=== PATIENT | female | born 1965 | race Caucasian/White ===

== ENCOUNTER 2024-08-14 08:44 | Outpatient (CLI) | payer BC, MEDICAID, SELFPAY ==
--- NOTE | 2024-08-14 | ECG_ITS ---
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 Interpretive Statements Lung unchanged pre/post procedure; Intraprocedure shortess of breath; Symptoms resoled by discharge PROCEDURE: At the baseline, the EKG revealed possibly normal sinus rhythm. Because of the heavy artifact, further manipulation is not possible. The baseline heart was 91 bpm with a blood pressue of 167/99 mm of Hg Lexiscan was infused over a period of 20 seconds. A total of 0.4 milligrams of Lexiscan was infused. The stress phase was continued for a total of 5 minutes. Heart rate at the end of the stress phase was 91 bpm with a blood pressure 149/110 mm of Hg. The EKG at the peak infusion revealed no significant changes. Sestamibi was injected 20 seconds after the Lexiscan infusion. Heart rate at the end of the recovery phase was 100 bpm with a blood pressure of 163/99 mm of Hg. CONCLUSION: 1. Possibly no significant EKG changes with the LexiScan infusion 2. No LexiScan induced chest pain or cardiac arrhythmia 3. Normal blood pressure and heart rate response 4. Sestamibi/sestamibi perfusion scan pending; see separate report. Electronically Signed On 08-18-2024 21:59:09 CDT by Anita Richmond M.D. [email or web address]
[2024-08-14 09:12] VITALS: BMI 35.0
--- NOTE | 2024-08-14 09:16 | NMCV_ITS ---
NM jamaal perf SPECT r/s* [id number] Margret Lagosh Age: 59 Gender: F : 1965 Exam Date: 08/14/2024 09:48 Ordering Phys: Itzel Cordero Technologist: COLT Peña Exam Location: [facility] Indications: cp STRESS TEST Please see separate stress test report in [facility] for full findings IMAGE PROTOCOL Rest/Stress 1 Lexiscan Day Radiopharmaceutical Dose (mCi) Administration Site Administered by Rest: Tc-99m 10.4 IV COLT Young Sestamibi Stress:Tc-99m 32.8 IV COLT Peña Sestamilinh Rest: 14-Aug-2024 60 Discovery 630 Stress: 14-Aug-2024 30 Discovery 630 0.4mg Lexiscan. Images obtained in supine and prone position. SPECT RESULTS Technical Quality: Good Raw Data Analysis: Normal Image Corrections: No attenuation or motion correction applied Summed Stress Score: 0 Summed Rest Score: 0 Summed Difference Score: 0 PERFUSION FINDINGS Fairly uniform myocardial tracer uptake with no significant Perfusion normalities FUNCTIONAL RESULTS (calculated via Gated SPECT) Stress Image LV EF (%): 93 Stress EDV (mL):57 TID: 0.7 Stress ESV (mL):4 FUNCTIONAL FINDINGS: Segmental wall motion analysis revealing no gross wall motion abnormalities IMPRESSIONS 1. Myocardial perfusion imaging revealing uniform myocardial tracer uptake with no significant perfusion abnormalities 2. Normal LV ejection fraction of 83%. 3. LV wall motion analysis revealing no gross wall motion abnormalities. 4. Normal LV volume Low probability for coronary ischemia, based on the above findings Dr Anita Richmond MD FACC (Electronically Signed) Final Date: 14 August 2024 13:23 S
[2024-08-14] MEDS: hyDRALAzine 20 mg/mL INJ 1 mL 10 MG IVP (10:55)
[2024-08-14 11:02] VITALS: BP 163/99; PULSE 99
== END 2024-08-14 08:45 | disposition home or self-care (01) ==
LOC: CDL 08:51
PROVIDERS: PCP Family Medicine; Visit Provider Registered Nurse
DX: I10 Essential (primary) hypertension (principal)
CPT/HCPCS: 36415; 78452; 93017; 96374; 96375; A9500; J0360; J2785

== ENCOUNTER 2024-10-02 06:38 | Oncology outpatient (recurring) (ONCR) | payer BC, MEDICAID, SELFPAY ==
--- NOTE | 2024-10-02 07:00 | USCV_ITS ---
Tomeka Lagos Age: 59 Gender: F : 1965 Exam Date: 10/02/2024 07:06 Ordering Phys: Verito Dobbs MD Technologist: Exam Location: [facility] [place] Indication: sob dizzy BP: 150 / 80 HR: 68 Rhythm: Sinus Technical Quality: Adequate MEASUREMENTS (Male / Female) Normal Values 2D ECHO LV Diastolic Diameter PLAX 4.3 cm 4.2 - 5.9 / 3.9 - 5.3 cm IVS Diastolic Thickness 1.3 cm 0.6 - 1.0 / 0.6 - 0.9 cm IVS Systolic Thickness 1.6 cm LVPW Diastolic Thickness 1.2 cm 0.6 - 1.0 / 0.6 - 0.9 cm LVPW Systolic Thickness 1.7 cm LVOT Diameter 2.0 cm LV Ejection Fraction 2D Teich 63.9 % LV Ejection Fraction MOD 4C 71.6 % LV Ejection Fraction MOD 2C 66.5 % LV Ejection Fraction 2C AL 65.8 % LA Diameter 3.2 cm RA Systolic Volume 4C AL 45.3 ml RA Systolic Volume 4C MOD 41.9 ml Aorta at Sinotubular Diameter 3.0 cm IVC Diameter 1.2 cm M-MODE LA Ao Ratio MM 1.4 AV Cusp Separation MM 2.7 cm DOPPLER AV Peak Velocity 125.0 cm/s LVOT Peak Velocity 66.0 cm/s AV Area Cont Eq vti 1.8 cm squared AV Area Cont Eq pk 1.7 cm squared MV Peak Velocity 91.0 cm/s TV Peak Velocity 167.5 cm/s TR Peak Velocity 208.0 cm/s TR Peak Gradient 17.3 mmHg TV Peak E Velocity 88.0 cm/s PV Peak Velocity 111.0 cm/s FINDINGS Left Ventricle Normal left ventricular size and systolic function with no regional wall motion abnormalities. Normal systolic function, EF 60-65%. Right Ventricle Normal right ventricular size and systolic function. Right Atrium Normal right atrial size. Left Atrium Normal left atrial size. Mitral Valve Structurally normal mitral valve. Trace mitral valve regurgitation. Aortic Valve Structurally normal aortic valve. No aortic valve stenosis. Tricuspid Valve Insufficient TR jet to calculate RVSP Pulmonic Valve Not well visualized Pericardium Normal Aorta Normal in size IVC Appears to be normal CONCLUSIONS LV systolic function is normal with EF of 60-65% Trace mitral regurgitation No comparison studies are available Iain Salazar MD (Electronically Signed) Final Date: 04 October 2024 11:58 S
== END 2024-10-06 23:59 | disposition home or self-care (01) ==
PROVIDERS: PCP Family Medicine; Visit Provider Internal Medicine Medical Oncology
DX: C50.912 Malignant neoplasm of unspecified site of left female breast (principal)
CPT/HCPCS: 93306

== ENCOUNTER 2024-11-05 11:17 | Day surgery (SDC) | payer BC, MEDICAID, SELFPAY ==
[2024-11-05] VITALS (7 sets, daily range): BP systolic 88–139; BP diastolic 62–97; PULSE 69–77; RESP 16–19; TEMP 36.1–36.3; O2SAT 92–100; BMI 36.2
--- NOTE | 2024-11-05 11:33 | SC_ITS ---
WS: [id number] C-arm FL for CVA [id number] REASON FOR EXAM: Port-A-Cath placement FINDINGS: Left chest port placement with left IJ infusion catheter with the tip at the junction of the SVC and innominate vein. SC/C-arm FL for CVA [id number] IMPRESSION: Left chest port and infusion catheter placement as above.
--- NOTE | 2024-11-05 11:53 | ANES.PREANE2 ---
Pre-Anesthetic Assessment Height/Weight: Height 5 ft 2 in Weight 198 lb O2 Del Method Room Air 11/05/24 11:43 Preop Diagnosis: Breast cancer Operation Date: 11/05/24 13:15 Proposed Procedures p Port a Cath Insertion 69511 C50.912(Not Applicable) - Max Hanks MD Was Beta Xochitl taken within 24 hours: N/A Was Clonidine taken within 24 hours: N/A Last intake: Intake Last Liquid Date 11/04/24 Last Liquid Time 21:00 Last Solid Date 11/04/24 Last Solid Time 21:00 Social No alcohol and No tobacco Exam alert, oriented x 3 and regular rate & rhythm Airway Submandibular: within normal limits Cervical ROM: within normal limits Mallampati: Class II Dentition: full Anesthetic Plan ASA status: 3 Anesthesia: General Other: No prior issues with anesthesia NPO since yesterday evening History of seizures on Keppra. Last taken yesterday. Last seizure 3 years ago Hypertension on metoprolol and spironolactone Patient recently diagnosed with breast cancer, invasive ductal carcinoma Echo performed in September showing preserved EF Plan for [facility] Medications/Allergies Home Medications ?Medication ?Instructions ?Recorded ?Confirmed ?Last Taken ?Type amitriptyline 25 mg tablet 25 mg PO DAILY 09/02/24 11/04/24 11/04/24 History atorvastatin 40 mg tablet 40 mg PO DAILY 09/02/24 11/05/24 11/05/24 History levetiracetam 500 mg tablet 500 mg PO BID 09/02/24 11/04/24 11/04/24 History (Keppra) metoprolol succinate 100 mg 100 mg PO DAILY 09/02/24 11/05/24 11/05/24 History tablet,extended release 24 hr spironolactone 25 mg tablet 25 mg PO DAILY 09/02/24 11/04/24 11/04/24 History 25 ondansetron HCl 4 mg tablet 4 mg PO Q6H PRN nausea and 10/28/24 11/04/24 Unknown Rx vomiting #30 tabs prochlorperazine maleate 10 mg 10 mg PO Q4H PRN mild nausea #30 10/28/24 11/04/24 Unknown Rx tablet (Compazine) tabs aspirin 81 mg tablet 81 mg PO DAILY 11/01/24 11/04/24 11/04/24 History Allergies Allergy/AdvReac Type Severity Reaction Status Date / Time Penicillins Allergy ALGY-Hives Verified 11/04/24 14:59 [facility] Anesthesia Social History Smoking and tobacco/nicotine status: never used tobacco/nicotine Data Anesthesia Cardiac Studies: Echocardiogram 10/02/24 Sestamibi Stress Test (Cardiology) 08/14/24
--- NOTE | 2024-11-05 11:59 | W.PM.OPSUD ---
Surgery/Procedure H&P Update DATE OF PROCEDURE: November 05, 2024 DATE H&P PERFORMED: 11/01/24 H&P UPDATE INFORMATION: I have reviewed H&P completed within last 30 days, I have examined patient prior to procedure, No changes to prior documentation and Risks and benefits of the procedure reviewed PLANNED PROCEDURE: Operation Date: 11/05/24 13:15 Proposed Procedures p Port a Cath Insertion 99133 C50.912(Not Applicable) - Max Hanks MD
[2024-11-05] MEDS: heparin, porcine 1,000 unit/mL INJ 10 mL 6000 UNIT INTRACATH (12:58)
[2024-11-05] MEDS: BUPivacaine 0.25% INJ 10 mL INJECTION (13:35)
[2024-11-05] MEDS: lidocaine-epi 1% 20 mL INJ 10 ML INJECTION (13:35)
--- NOTE | 2024-11-05 13:39 | P.OP_ITS ---
Operative Report Date of procedure: November 05, 2024 Pre-op diagnosis: Breast cancer Post-op diagnosis: same Post-op findings: Tip of catheter of catheter at atriocaval junction confirmed with intraoperative fluoroscopy Procedure done: Port-A-Cath placement Implants: Port-A-Cath Specimens removed/disposition: N/A Pathology: none sent Surgeon: Max Hanks MD Finishing Machine Operator: N/A Anesthesia: MAC Estimated blood loss (mL): 20 Complications: N/A Findings: Tip of catheter at atriocaval junction confirmed with intraoperative fluoroscopy. Condition: stable Disposition: same day Brief History: 59-year-old female who presents with breast cancer. Needs port for chemotherapy. Discussed risk and benefits and patient agrees to proceed with Port-A-Cath placement. Procedure: Patient was brought into the operating room and a timeout was carried out. Pr ocedure was done under MAC. Patient was placed supine with the arms tucked and in Trendelenburg. Patient was prepped and draped in the usual sterile fashion. Using ultrasound guidance 3 attempts were made to access the right internal jugular vein. Attempts were unsuccessful. I then turned my attention to the left internal jugular vein. I was able to access the left internal jugular vein easily. A guidewire was then placed down to the atriocaval junction using fluoroscopy. The finder needle was removed and the guidewire was secured. I then turned my attention to creating a pocket over the left chest. Made sure to locally infiltrated using plain lidocaine and bupivacaine at the site of the pocket and throughout the tunnel site. I confirmed adequate hemostasis at the pocket. I then proceeded to place the port that was already preassembled and flushed with heparinized saline and the chest pocket. I tunneled the catheter from the chest to the neck at the site where I accessed the internal jugular vein. I measured and adjusted the length of the catheter so it would reach the atrial caval junction. At this point, I used a dilator to dilate the tract into the internal jugular vein using fluoroscopy. I removed the guidewire and proceeded to thread the central venous catheter through the introducer. In the process, I removed the sheath as a completely pushed the catheter into the internal jugular vein. I then confirmed adequate placement of the catheter by performing intraoperative interpretation of fluoroscopy. The tip of the catheter was confirmed to be placed in the atriocaval junction. There were no kinks noted throughout the trajectory of the catheter. I then proceeded to test the port and was satisfied with its functionality. I proceeded to flushed the c atheter without any issues. I then hep-locked the port. Skin was closed using deep dermal 3-0 Vicryl, subcuticular 4-0 Monocryl, and Dermabond. Patient was then transferred to PACU without any complications.
--- NOTE | 2024-11-06 14:40 | ANE.PACU2 ---
Inpatient post-anesthesia follow up: Airway intact: Yes Vital signs: Temperature 97.0 F Pulse Rate 77 Respiratory Rate 16 Blood Pressure 110/66 Pulse Oximetry 92 Oxygen Delivery Me thod Room Air Oxygen Flow Rate 10 Fraction of Inspir ed Oxygen Hydration adequate: Yes Nausea and vomiting: No Pain level: 1 Mental status: Baseline
== END 2024-11-05 14:40 | disposition home or self-care (01) ==
PROVIDERS: PCP Family Medicine; Visit Provider Student in an Organized Health Care Education/Training Program
PROC: (CPT 36561; principal; 2024-11-05 13:15)
DX: C50.919 Malignant neoplasm of unspecified site of unspecified female breast (principal); I10 Essential (primary) hypertension; R56.9 Unspecified convulsions; Z79.82 Long term (current) use of aspirin
CPT/HCPCS: 36561; 76000; 77001; C1788; J1644; J2704; J3010; J3373; J3490; J7030; J7050; J9999

== ENCOUNTER 2024-12-02 12:30 | Oncology outpatient (recurring) (ONCR) | payer BC, MEDICAID, SELFPAY ==
[2024-11-20 15:40] VITALS: BP 131/87; PULSE 67; RESP 16; TEMP 36.3; O2SAT 97
[2024-11-25 09:37] LABS: Hematocrit 37.2 % (36-47); Hemoglobin 11.80 g/dL (11.27-16.99); Mean Corpuscular HGB Conc 31.7 g/dL (30-55); Mean Corpuscular Hemoglobin 31.4 pg (27-33); Mean Corpuscular Volume 98.9 fl (85-98); Nucleated Red Blood Cells % 0 %; Platelet Count 229 10^3/cmm (157-399); Red Blood Count 3.76 10^6/uL (3.85-5.65); White Blood Count 6.23 10^3/uL (3.29-11.43)
[2024-11-25 09:55] LABS: Alanine Aminotransferase 10 U/L (0-33); Albumin Level 4.0 g/dL (3.5-5.2); Alkaline Phosphatase 127 U/L (35-105); Anion Gap 17.7 (5-19); Aspartate Amino Transferase 13 U/L (0-32); Blood Urea Nitrogen 24 mg/dL (8-23); Calcium 9.8 mg/dL (8.5-10.5); Carbon Dioxide 20 mmol/L (22-29); Chloride 103 mmol/L (98-107); Creatinine Clr Calc Pharmacy 28.9823; Globulin 3.2 g/dL (1.3-4.6); Glucose 123 mg/dL (65-115); Osmolality Calculated 289 mOsm/kg (285-295); Potassium 3.7 mmol/L (3.5-5.1); Sodium 137 mmol/L (136-145); Total Protein 7.2 g/dL (6.6-8.7)
[2024-11-25] MEDS: diphenhydrAMINE 50 mg/mL SDV 1mL 25 MG IVP (11:58)
[2024-11-25] MEDS: DOXOrubicin 2 mg/ml MDV 114 MG IVP (13:27)
[2024-11-25] MEDS: CYCLOPHOSPHAMIDE IV (13:46)
[2024-11-25] MEDS: SODIUM CHLORIDE 0.9% IV (13:46)
[2024-11-25] MEDS: pegfilgrastim 6 mg/0.6 mL Kit (onpro) SUBCUT (15:29)
[2024-11-25 15:35] VITALS: BP 131/87; PULSE 60; RESP 16; TEMP 36.7; O2SAT 90
[2024-12-02 12:40] LABS: Hematocrit 32.0 % (36-47); Hemoglobin 10.50 g/dL (11.27-16.99); Mean Corpuscular HGB Conc 32.8 g/dL (30-55); Mean Corpuscular Hemoglobin 31.1 pg (27-33); Mean Corpuscular Volume 94.7 fl (85-98); Nucleated Red Blood Cells % 0 %; Platelet Count 147 10^3/cmm (157-399); Red Blood Count 3.38 10^6/uL (3.85-5.65)
[2024-12-02 13:00] LABS: Alanine Aminotransferase < 5 U/L (0-33); Albumin Level 3.7 g/dL (3.5-5.2); Alkaline Phosphatase 114 U/L (35-105); Anion Gap 17.3 (5-19); Aspartate Amino Transferase 8 U/L (0-32); Blood Urea Nitrogen 18 mg/dL (8-23); Calcium 10.1 mg/dL (8.5-10.5); Carbon Dioxide 20 mmol/L (22-29); Chloride 97 mmol/L (98-107); Creatinine Clr Calc Pharmacy 46.8176; Globulin 3.2 g/dL (1.3-4.6); Glucose 137 mg/dL (65-115); Osmolality Calculated 274 mOsm/kg (285-295); Potassium 4.3 mmol/L (3.5-5.1); Sodium 130 mmol/L (136-145); Total Protein 6.9 g/dL (6.6-8.7)
[2024-12-02 13:42] LABS: Slide Review Slide Review Perform; White Blood Count 0.54 10^3/uL (3.29-11.43)
== END 2024-12-06 23:59 | disposition home or self-care (01) ==
PROVIDERS: Internal Medicine Medical Oncology; PCP Family Medicine; Visit Provider Nurse Practitioner
DX: C50.912 Malignant neoplasm of unspecified site of left female breast; Z53.9 Procedure and treatment not carried out, unspecified reason
CPT/HCPCS: 36591; 80053; 85025; 96372; 96375; 96377; 96411; 96413; J1100; J1200; J1453; J2469; J2506; J3490; J7030; J7040; J9000; J9075; J9999

== ENCOUNTER 2024-12-23 09:30 | Oncology outpatient (recurring) (ONCR) | payer BC, MEDICAID, SELFPAY ==
[2024-12-09] MEDS: alteplase 1 mg/mL SDV 2 mL 2 MG INTRACATH (08:56)
[2024-12-09 09:01] LABS: Hematocrit 33.0 % (36-47); Hemoglobin 10.70 g/dL (11.27-16.99); Mean Corpuscular HGB Conc 32.4 g/dL (30-55); Mean Corpuscular Hemoglobin 31.5 pg (27-33); Mean Corpuscular Volume 97.1 fl (85-98); Platelet Count 446 10^3/cmm (157-399); Red Blood Count 3.40 10^6/uL (3.85-5.65); White Blood Count 8.49 10^3/uL (3.29-11.43)
[2024-12-09 09:16] LABS: Alanine Aminotransferase 16 U/L (0-33); Albumin Level 3.8 g/dL (3.5-5.2); Alkaline Phosphatase 119 U/L (35-105); Anion Gap 16.1 (5-19); Aspartate Amino Transferase 24 U/L (0-32); Blood Urea Nitrogen 14 mg/dL (8-23); Calcium 10.4 mg/dL (8.5-10.5); Carbon Dioxide 22 mmol/L (22-29); Chloride 105 mmol/L (98-107); Globulin 3.0 g/dL (1.3-4.6); Glucose 146 mg/dL (65-115); Osmolality Calculated 291 mOsm/kg (285-295); Potassium 4.1 mmol/L (3.5-5.1); Sodium 139 mmol/L (136-145); Total Protein 6.8 g/dL (6.6-8.7)
[2024-12-09 10:19] LABS: Slide Review Slide Review Perform
[2024-12-09 10:20] LABS: Absolute Segmented Neutrophil 4.7 10/cmm (1.6-7.1); Total Cells Counted 100 (0-100)
[2024-12-09 10:21] LABS: Atypical Lymphs 0.0 % (0-5); Band Neutrophils Absolute 0.2 10^3/cmm (0.0-1.2)
[2024-12-09] MEDS: diphenhydrAMINE 50 mg/mL SDV 1mL 25 MG IVP (11:30)
[2024-12-09] MEDS: DOXOrubicin 2 mg/ml MDV 112 MG IVP (12:54)
[2024-12-09] MEDS: SODIUM CHLORIDE 0.9% IV (13:15)
[2024-12-09] MEDS: CYCLOPHOSPHAMIDE IV (13:15)
[2024-12-09] MEDS: pegfilgrastim 6 mg/0.6 mL Kit (onpro) SUBCUT (14:27)
[2024-12-16] MEDS: alteplase 1 mg/mL SDV 2 mL 2 MG INTRACATH (11:28)
[2024-12-16 11:36] LABS: Hematocrit 29.1 % (36-47); Hemoglobin 9.60 g/dL (11.27-16.99); Mean Corpuscular HGB Conc 33.0 g/dL (30-55); Mean Corpuscular Hemoglobin 31.7 pg (27-33); Mean Corpuscular Volume 96.0 fl (85-98); Nucleated Red Blood Cells % 0 %; Platelet Count 225 10^3/cmm (157-399); Red Blood Count 3.03 10^6/uL (3.85-5.65)
[2024-12-16 12:00] LABS: Slide Review Slide Review Perform; White Blood Count 0.59 10^3/uL (3.29-11.43)
[2024-12-16 12:01] LABS: Alanine Aminotransferase < 5 U/L (0-33); Albumin Level 3.9 g/dL (3.5-5.2); Alkaline Phosphatase 113 U/L (35-105); Anion Gap 17.8 (5-19); Aspartate Amino Transferase 12 U/L (0-32); Blood Urea Nitrogen 13 mg/dL (8-23); Calcium 9.9 mg/dL (8.5-10.5); Carbon Dioxide 18 mmol/L (22-29); Chloride 103 mmol/L (98-107); Globulin 2.9 g/dL (1.3-4.6); Glucose 158 mg/dL (65-115); Osmolality Calculated 281 mOsm/kg (285-295); Potassium 4.8 mmol/L (3.5-5.1); Sodium 134 mmol/L (136-145); Total Protein 6.8 g/dL (6.6-8.7)
[2024-12-23] MEDS: alteplase 1 mg/mL SDV 2 mL 2 MG INTRACATH (09:44)
[2024-12-23 10:03] LABS: Hematocrit 30.3 % (36-47); Hemoglobin 9.80 g/dL (11.27-16.99); Mean Corpuscular HGB Conc 32.3 g/dL (30-55); Mean Corpuscular Hemoglobin 31.4 pg (27-33); Mean Corpuscular Volume 97.1 fl (85-98); Platelet Count 450 10^3/cmm (157-399); Red Blood Count 3.12 10^6/uL (3.85-5.65); White Blood Count 9.10 10^3/uL (3.29-11.43)
[2024-12-23 10:24] LABS: Alanine Aminotransferase 12 U/L (0-33); Albumin Level 3.6 g/dL (3.5-5.2); Alkaline Phosphatase 168 U/L (35-105); Anion Gap 16.3 (5-19); Aspartate Amino Transferase 18 U/L (0-32); Blood Urea Nitrogen 19 mg/dL (8-23); Calcium 10.2 mg/dL (8.5-10.5); Carbon Dioxide 20 mmol/L (22-29); Chloride 107 mmol/L (98-107); Globulin 3.5 g/dL (1.3-4.6); Glucose 135 mg/dL (65-115); Osmolality Calculated 292 mOsm/kg (285-295); Potassium 4.3 mmol/L (3.5-5.1); Sodium 139 mmol/L (136-145); Total Protein 7.1 g/dL (6.6-8.7)
[2024-12-23 10:54] LABS: Slide Review Slide Review Perform
[2024-12-23 10:55] LABS: Total Cells Counted 100 (0-100)
[2024-12-23 10:59] LABS: Absolute Segmented Neutrophil 5.6 10/cmm (1.6-7.1); Atypical Lymphs 2.0 % (0-5); Band Neutrophils Absolute 0.1 10^3/cmm (0.0-1.2)
[2024-12-23] MEDS: diphenhydrAMINE 50 mg/mL SDV 1mL 25 MG IVP (11:35)
[2024-12-23] MEDS: DOXOrubicin 2 mg/ml MDV 110 MG IVP (12:45)
[2024-12-23] MEDS: pegfilgrastim 6 mg/0.6 mL Kit (onpro) SUBCUT (14:27)
[2024-12-23 14:36] VITALS: BP 103/69; PULSE 88; RESP 17; TEMP 36.3; O2SAT 92
== END 2024-12-23 23:59 | disposition home or self-care (01) ==
PROVIDERS: Nurse Practitioner; PCP Family Medicine; Visit Provider Internal Medicine Medical Oncology
DX: Z51.11 Encounter for antineoplastic chemotherapy; C50.912 Malignant neoplasm of unspecified site of left female breast; T82.9XXA Unspecified complication of cardiac and vascular prosthetic device, implant and graft, initial encounter; X58.XXXA Exposure to other specified factors, initial encounter; Z79.52 Long term (current) use of systemic steroids; Z79.899 Other long term (current) drug therapy; Z53.9 Procedure and treatment not carried out, unspecified reason
CPT/HCPCS: 36415; 36593; 80053; 85007; 85025; 96367; 96375; 96377; 96411; 96413; 96415; J1100; J1200; J1453; J2469; J2506; J2997; J3490; J7040; J7050; J9000; J9075; J9999

== ENCOUNTER 2024-12-30 08:43 | Oncology outpatient (recurring) (ONCR) | payer BC, MEDICAID, SELFPAY ==
[2024-12-30] MEDS: alteplase 1 mg/mL SDV 2 mL 2 MG INTRACATH (09:04)
[2024-12-30 09:08] LABS: Hematocrit 26.8 % (36-47); Hemoglobin 8.60 g/dL (11.27-16.99); Mean Corpuscular HGB Conc 32.1 g/dL (30-55); Mean Corpuscular Hemoglobin 30.8 pg (27-33); Mean Corpuscular Volume 96.1 fl (85-98); Nucleated Red Blood Cells % 0 %; Platelet Count 223 10^3/cmm (157-399); Red Blood Count 2.79 10^6/uL (3.85-5.65)
[2024-12-30 09:27] LABS: Alanine Aminotransferase 8 U/L (0-33); Albumin Level 3.7 g/dL (3.5-5.2); Alkaline Phosphatase 128 U/L (35-105); Anion Gap 16.4 (5-19); Aspartate Amino Transferase 15 U/L (0-32); Blood Urea Nitrogen 16 mg/dL (8-23); Calcium 10.1 mg/dL (8.5-10.5); Carbon Dioxide 18 mmol/L (22-29); Chloride 106 mmol/L (98-107); Globulin 2.9 g/dL (1.3-4.6); Glucose 121 mg/dL (65-115); Osmolality Calculated 284 mOsm/kg (285-295); Potassium 4.4 mmol/L (3.5-5.1); Sodium 136 mmol/L (136-145); Total Protein 6.6 g/dL (6.6-8.7)
[2024-12-30 09:43] LABS: White Blood Count 0.57 10^3/uL (3.29-11.43)
[2024-12-30 09:44] LABS: Slide Review Slide Review Perform
== END 2025-01-05 23:59 | disposition home or self-care (01) ==
LOC: ONCMED 08:43
PROVIDERS: PCP Family Medicine; Visit Provider Internal Medicine Medical Oncology
DX: C50.912 Malignant neoplasm of unspecified site of left female breast (principal); Z79.52 Long term (current) use of systemic steroids; Z79.899 Other long term (current) drug therapy; T82.9XXA Unspecified complication of cardiac and vascular prosthetic device, implant and graft, initial encounter; X58.XXXA Exposure to other specified factors, initial encounter
CPT/HCPCS: 36415; 36593; 80053; 85025; J2997

== ENCOUNTER 2025-01-27 07:45 | Oncology outpatient (recurring) (ONCR) | payer BC, MEDICAID, SELFPAY ==
[2025-01-06 10:13] LABS: Hematocrit 28.9 % (36-47); Hemoglobin 9.20 g/dL (11.27-16.99); Mean Corpuscular HGB Conc 31.8 g/dL (30-55); Mean Corpuscular Hemoglobin 31.0 pg (27-33); Mean Corpuscular Volume 97.3 fl (85-98); Platelet Count 314 10^3/cmm (157-399); Red Blood Count 2.97 10^6/uL (3.85-5.65); White Blood Count 7.34 10^3/uL (3.29-11.43)
[2025-01-06 10:22] LABS: Slide Review Slide Review Perform
[2025-01-06 10:23] LABS: Alanine Aminotransferase 14 U/L (0-33); Albumin Level 3.6 g/dL (3.5-5.2); Alkaline Phosphatase 135 U/L (35-105); Anion Gap 15.8 (5-19); Aspartate Amino Transferase 22 U/L (0-32); Blood Urea Nitrogen 8 mg/dL (8-23); Calcium 10.2 mg/dL (8.5-10.5); Carbon Dioxide 21 mmol/L (22-29); Chloride 107 mmol/L (98-107); Globulin 2.8 g/dL (1.3-4.6); Glucose 118 mg/dL (65-115); Osmolality Calculated 289 mOsm/kg (285-295); Potassium 3.8 mmol/L (3.5-5.1); Sodium 140 mmol/L (136-145); Total Protein 6.4 g/dL (6.6-8.7)
[2025-01-06 10:26] LABS: Absolute Segmented Neutrophil 4.0 10/cmm (1.6-7.1); Band Neutrophils Absolute 0.3 10^3/cmm (0.0-1.2); Total Cells Counted 100 (0-100)
[2025-01-06 10:27] LABS: Atypical Lymphs 0.0 % (0-5)
[2025-01-06] MEDS: diphenhydrAMINE 50 mg/mL SDV 1mL 25 MG IVP (11:25)
[2025-01-06] MEDS: DOXOrubicin 2 mg/ml MDV 108 MG IVP (13:02)
[2025-01-06] MEDS: pegfilgrastim 6 mg/0.6 mL Kit (onpro) SUBCUT (15:02)
[2025-01-06 15:07] VITALS: BP 110/74; PULSE 86; RESP 17; TEMP 36.4; O2SAT 94
[2025-01-13] MEDS: alteplase 1 mg/mL SDV 2 mL 2 MG INTRACATH (08:30)
[2025-01-13 08:39] LABS: Hematocrit 24.2 % (36-47); Hemoglobin 7.70 g/dL (11.27-16.99); Mean Corpuscular HGB Conc 31.8 g/dL (30-55); Mean Corpuscular Hemoglobin 30.7 pg (27-33); Mean Corpuscular Volume 96.4 fl (85-98); Nucleated Red Blood Cells % 0 %; Platelet Count 166 10^3/cmm (157-399); Red Blood Count 2.51 10^6/uL (3.85-5.65)
[2025-01-13 08:58] LABS: Alanine Aminotransferase < 5 U/L (0-33); Albumin Level 3.6 g/dL (3.5-5.2); Alkaline Phosphatase 125 U/L (35-105); Anion Gap 16.3 (5-19); Aspartate Amino Transferase 10 U/L (0-32); Blood Urea Nitrogen 14 mg/dL (8-23); Calcium 9.9 mg/dL (8.5-10.5); Carbon Dioxide 21 mmol/L (22-29); Chloride 104 mmol/L (98-107); Globulin 2.8 g/dL (1.3-4.6); Glucose 130 mg/dL (65-115); Osmolality Calculated 286 mOsm/kg (285-295); Potassium 4.3 mmol/L (3.5-5.1); Sodium 137 mmol/L (136-145); Total Protein 6.4 g/dL (6.6-8.7)
[2025-01-13 09:07] LABS: Slide Review Slide Review Perform; White Blood Count 0.34 10^3/uL (3.29-11.43)
[2025-01-20] MEDS: alteplase 1 mg/mL SDV 2 mL 2 MG INTRACATH ×2 (08:27→10:35)
[2025-01-20 08:44] LABS: Hematocrit 25.8 % (36-47); Hemoglobin 8.20 g/dL (11.27-16.99); Mean Corpuscular HGB Conc 31.8 g/dL (30-55); Mean Corpuscular Hemoglobin 30.6 pg (27-33); Mean Corpuscular Volume 96.3 fl (85-98); Platelet Count 342 10^3/cmm (157-399); Red Blood Count 2.68 10^6/uL (3.85-5.65); White Blood Count 7.05 10^3/uL (3.29-11.43)
[2025-01-20 09:04] LABS: Slide Review Slide Review Perform
[2025-01-20 09:07] LABS: Absolute Segmented Neutrophil 3.5 10/cmm (1.6-7.1); Atypical Lymphs 1.0 % (0-5); Band Neutrophils Absolute 0.6 10^3/cmm (0.0-1.2); Total Cells Counted 100 (0-100)
[2025-01-20 09:11] LABS: Alanine Aminotransferase 27 U/L (0-33); Albumin Level 4.0 g/dL (3.5-5.2); Alkaline Phosphatase 119 U/L (35-105); Anion Gap 16.8 (5-19); Aspartate Amino Transferase 39 U/L (0-32); Blood Urea Nitrogen 11 mg/dL (8-23); Calcium 10.6 mg/dL (8.5-10.5); Carbon Dioxide 23 mmol/L (22-29); Chloride 100 mmol/L (98-107); Globulin 2.9 g/dL (1.3-4.6); Glucose 112 mg/dL (65-115); Osmolality Calculated 282 mOsm/kg (285-295); Potassium 3.8 mmol/L (3.5-5.1); Sodium 136 mmol/L (136-145); Total Protein 6.9 g/dL (6.6-8.7)
[2025-01-20 09:38] VITALS: BP 107/77; PULSE 99; RESP 16; TEMP 36.4; O2SAT 98
[2025-01-20] MEDS: dexamethasone 4 mg/mL INJ 5 mL 12 MG IVP (11:08)
[2025-01-20] MEDS: diphenhydrAMINE 50 mg/mL SDV 1mL 25 MG IVP (11:10)
[2025-01-20 13:34] VITALS: BP 124/68; PULSE 82; RESP 17; TEMP 36.7; O2SAT 96
[2025-01-27] MEDS: alteplase 1 mg/mL SDV 2 mL 2 MG INTRACATH (08:10)
[2025-01-27 08:12] LABS: Hematocrit 27.5 % (36-47); Hemoglobin 8.50 g/dL (11.27-16.99); Mean Corpuscular HGB Conc 30.9 g/dL (30-55); Mean Corpuscular Hemoglobin 30.6 pg (27-33); Mean Corpuscular Volume 98.9 fl (85-98); Nucleated Red Blood Cells % 0.3 %; Platelet Count 474 10^3/cmm (157-399); Red Blood Count 2.78 10^6/uL (3.85-5.65); White Blood Count 8.90 10^3/uL (3.29-11.43)
[2025-01-27 08:35] LABS: Alanine Aminotransferase 17 U/L (0-33); Albumin Level 4.1 g/dL (3.5-5.2); Alkaline Phosphatase 100 U/L (35-105); Anion Gap 17.4 (5-19); Aspartate Amino Transferase 30 U/L (0-32); Blood Urea Nitrogen 11 mg/dL (8-23); Calcium 10.7 mg/dL (8.5-10.5); Carbon Dioxide 22 mmol/L (22-29); Chloride 102 mmol/L (98-107); Globulin 2.5 g/dL (1.3-4.6); Glucose 138 mg/dL (65-115); Osmolality Calculated 286 mOsm/kg (285-295); Potassium 4.4 mmol/L (3.5-5.1); Sodium 137 mmol/L (136-145); Total Protein 6.6 g/dL (6.6-8.7)
[2025-01-27] MEDS: diphenhydrAMINE 50 mg/mL SDV 1mL 25 MG IVP (09:20)
[2025-01-27] MEDS: dexamethasone 4 mg/mL INJ 5 mL 12 MG IVP (09:22)
[2025-01-27 11:16] VITALS: BP 116/73; PULSE 76; RESP 16; TEMP 36.3; O2SAT 93
== END 2025-01-27 23:59 | disposition home or self-care (01) ==
PROVIDERS: Nurse Practitioner; PCP Family Medicine; Visit Provider Internal Medicine Medical Oncology
DX: Z51.11 Encounter for antineoplastic chemotherapy; C50.912 Malignant neoplasm of unspecified site of left female breast; Z95.828 Presence of other vascular implants and grafts; Z79.52 Long term (current) use of systemic steroids; Z79.899 Other long term (current) drug therapy; Z53.9 Procedure and treatment not carried out, unspecified reason
CPT/HCPCS: 36415; 36593; 80053; 85007; 85025; 96367; 96375; 96377; 96411; 96413; J1100; J1200; J1453; J2469; J2506; J2997; J3490; J7040; J7050; J9000; J9075; J9267; J9999

== ENCOUNTER 2025-02-03 07:26 | Oncology outpatient (recurring) (ONCR) | payer BC, MEDICAID, SELFPAY ==
[2025-02-03] MEDS: alteplase 1 mg/mL SDV 2 mL 2 MG INTRACATH (07:51)
[2025-02-03 07:56] LABS: Hematocrit 25.4 % (36-47); Hemoglobin 8.00 g/dL (11.27-16.99); Mean Corpuscular HGB Conc 31.5 g/dL (30-55); Mean Corpuscular Hemoglobin 31.3 pg (27-33); Mean Corpuscular Volume 99.2 fl (85-98); Nucleated Red Blood Cells % 0 %; Platelet Count 256 10^3/cmm (157-399); Red Blood Count 2.56 10^6/uL (3.85-5.65); White Blood Count 6.55 10^3/uL (3.29-11.43)
[2025-02-03 08:18] LABS: Alanine Aminotransferase 13 U/L (0-33); Albumin Level 4.0 g/dL (3.5-5.2); Alkaline Phosphatase 93 U/L (35-105); Anion Gap 17.8 (5-19); Aspartate Amino Transferase 26 U/L (0-32); Blood Urea Nitrogen 13 mg/dL (8-23); Calcium 10.5 mg/dL (8.5-10.5); Carbon Dioxide 20 mmol/L (22-29); Chloride 103 mmol/L (98-107); Globulin 2.4 g/dL (1.3-4.6); Glucose 149 mg/dL (65-115); Osmolality Calculated 287 mOsm/kg (285-295); Potassium 3.8 mmol/L (3.5-5.1); Sodium 137 mmol/L (136-145); Total Protein 6.4 g/dL (6.6-8.7)
[2025-02-03] MEDS: dexamethasone 4 mg/mL INJ 5 mL 12 MG IVP (08:37)
[2025-02-03] MEDS: diphenhydrAMINE 50 mg/mL SDV 1mL 25 MG IVP (08:40)
[2025-02-03 10:45] VITALS: BP 103/69; PULSE 75; RESP 16; TEMP 36.6; O2SAT 95
== END 2025-02-05 23:59 | disposition home or self-care (01) ==
PROVIDERS: Nurse Practitioner; PCP Family Medicine; Visit Provider Internal Medicine Medical Oncology
DX: Z53.9 Procedure and treatment not carried out, unspecified reason; Z51.11 Encounter for antineoplastic chemotherapy; C50.912 Malignant neoplasm of unspecified site of left female breast; Z79.899 Other long term (current) drug therapy; Z79.52 Long term (current) use of systemic steroids; Z95.828 Presence of other vascular implants and grafts
CPT/HCPCS: 80053; 85025; 96375; 96413; J1100; J1200; J2469; J2997; J3490; J7050; J9267; J9999